=== PATIENT | female | born 1990 | race Caucasian/White ===

== ENCOUNTER 2018-09-06 23:36 | Inpatient (IN) | payer BC ==
[~2018-09-06] VITALS: Ht 160 cm; Wt 73.0 kg
[~2018-09-06 23:36] MED LIST: BUPIVACAINE /PF 0.5% 30 ML VIAL EP ONE; LEVO25TA2 PO
[2018-09-06] MEDS: LR 1,000 ML IV SCH (23:50)
[2018-09-07] MEDS ORDERED: LR 1,000 ML IV ONE
[2018-09-07] MEDS ORDERED: NALBUPHINE HCL 10 MG/ML AMP IM PRN
[2018-09-07] MEDS ORDERED: OXYTOCIN/0.9 % SODIUM CHLORIDE 1,000 ML IV SCH
[2018-09-07] MEDS ORDERED: TERBUTALINE SULFATE 1 MG/ML VIAL SUBCUT ONE
[2018-09-07 00:30] LABS: BASOPHILS % (AUTO) 0.3 % (0.0-2.0); EOSINOPHILS # (AUTO) 0.1 K/uL (0.0-0.4); EOSINOPHILS % (AUTO) 0.7 % (0.0-4.0); HEMATOCRIT 38.6 % (36-48); HEMOGLOBIN 12.8 g/dL (12.0-16.0); LYMPHOCYTES # (AUTO) 1.7 K/uL (1.0-5.5); LYMPHOCYTES % (AUTO) 17.1 % (20.5-51.5); MEAN CORPUSCULAR HEMOGLOBIN 33 pg (27-31); MEAN CORPUSCULAR HGB CONC 33 % (32-36); MEAN CORPUSCULAR VOLUME 98 fL (79.0-98.0); MONOCYTES # (AUTO) 0.8 K/uL (0.0-1.0); MONOCYTES % (AUTO) 8.7 % (1.7-9.3); NEUTROPHILS # (AUTO) 7.1 K/uL (1.8-7.7); NEUTROPHILS % (AUTO) 73.2 % (40.0-70.0); PLATELET COUNT (AUTO) 338 K/uL (130-430); RED BLOOD CELL COUNT(AUTO) 3.92 MIL/uL (4.2-6.2); RED CELL DISTRIBUTION WIDTH 11.9 % (9.0-15.0); WHITE BLOOD COUNT (AUTO) 9.7 K/uL (4.8-10.8)
[2018-09-07] MEDS: LR 1,000 ML IV SCH ×2 (00:30→03:15)
[2018-09-07] MEDS ORDERED: ROPIVACAINE 0.2% 100 ML ONE ×2 (00:32→07:24)
[2018-09-07] MEDS ORDERED: fentaNYL CITRATE/PF 100 MCG/2 ML AMP ONE (00:36)
[2018-09-07] MEDS ORDERED: LR 500 ML IV ONE (01:10)
[2018-09-07] MEDS ORDERED: FENT2mCg/mL-ROPIVA0.2%/NS EPID 150 ML EP SCH (01:15)
[2018-09-07 01:20] VITALS: BP_SYST 155
[2018-09-07] MEDS ORDERED: CEFAZOLIN 2 GM IVPB PREMIX 50 ML IV ONE (09:15)
[2018-09-07] MEDS ORDERED: fentaNYL CITRATE/PF 100 MCG/2 ML AMP IVP PRN ×2 (10:30)
[2018-09-07] MEDS ORDERED: DIPHENHYDRAMINE INJ 50 MG/ML VIAL IVP PRN (10:30)
[2018-09-07] MEDS ORDERED: MORPHINE SULFATE 10MG/10ML PF AMP EP SCH (10:30)
[2018-09-07] MEDS ORDERED: KETOROLAC TROMETHAMINE 60 MG/2 ML VIAL IM PRN (10:30)
[2018-09-07] MEDS ORDERED: NALBUPHINE HCL 10 MG/ML AMP IVP PRN ×2 (10:30)
[2018-09-07] MEDS ORDERED: ONDANSETRON HCL 4 MG/2 ML VIAL IVP PRN (10:30)
[2018-09-07] MEDS ORDERED: NALOXONE HCL 0.4 MG/ML AMP (NARCAN) IVP PRN ×2 (10:30)
[2018-09-07 10:50] VITALS: BP_SYST 123
[2018-09-07] MEDS ORDERED: MEPERIDINE HCL/PF 25 MG/ML DISP.SYRIN IM ONE (12:00)
[2018-09-07] MEDS ORDERED: MEPERIDINE HCL/PF 25 MG/ML DISP.SYRIN ONE (12:07)
[2018-09-07] MEDS ORDERED: LR 1,000 ML IV SCH (14:44)
[2018-09-07] MEDS ORDERED: OXYTOCIN/0.9 % SODIUM CHLORIDE 1,000 ML IV ONE (14:44)
[2018-09-07] MEDS ORDERED: RHO(D) IMMUNE GLOBULIN/MALTOSE 1500 UNITS/1.3 ML (WINHRO) IM PRN (14:45)
[2018-09-07] MEDS ORDERED: OXYCODONE/ACETAMINOPHEN 5-325 TABLET PO PRN (14:45)
[2018-09-07] MEDS ORDERED: DOCUSATE SODIUM 100 MG CAPSULE PO PRN (14:45)
[2018-09-07] MEDS ORDERED: LANOLIN 7 GM OINT. TP PRN (14:45)
[2018-09-07] MEDS: CEFAZOLIN 1 GM IVPB PREMIX 50 ML IV SCH ×2 (18:03→23:36)
[2018-09-07] MEDS: KETOROLAC TROMETHAMINE 30 MG VIAL IVP SCH ×2 (18:03→23:38)
[2018-09-07] MEDS ORDERED: TEMAZEPAM 15 MG CAPSULE PO PRN (21:00)
[2018-09-08] MEDS ORDERED: IBUPROFEN 600 MG TABLET PO SCH (06:00)
[2018-09-08] MEDS: CEFAZOLIN 1 GM IVPB PREMIX 50 ML IV SCH (06:11)
[2018-09-08] MEDS: KETOROLAC TROMETHAMINE 30 MG VIAL IVP SCH (06:11)
[2018-09-08 06:56] LABS: BASOPHILS % (AUTO) 0.3 % (0.0-2.0); EOSINOPHILS # (AUTO) 0.1 K/uL (0.0-0.4); EOSINOPHILS % (AUTO) 1.1 % (0.0-4.0); HEMATOCRIT 31.9 % (36-48); HEMOGLOBIN 10.9 g/dL (12.0-16.0); LYMPHOCYTES # (AUTO) 1.5 K/uL (1.0-5.5); LYMPHOCYTES % (AUTO) 14.2 % (20.5-51.5); MEAN CORPUSCULAR HEMOGLOBIN 33 pg (27-31); MEAN CORPUSCULAR HGB CONC 34 % (32-36); MEAN CORPUSCULAR VOLUME 96 fL (79.0-98.0); MONOCYTES # (AUTO) 0.7 K/uL (0.0-1.0); MONOCYTES % (AUTO) 6.5 % (1.7-9.3); NEUTROPHILS % (AUTO) 77.9 % (40.0-70.0); PLATELET COUNT (AUTO) 235 K/uL (130-430); RED BLOOD CELL COUNT(AUTO) 3.31 MIL/uL (4.2-6.2); RED CELL DISTRIBUTION WIDTH 11.9 % (9.0-15.0); WHITE BLOOD COUNT (AUTO) 10.3 K/uL (4.8-10.8)
[2018-09-08] MEDS ORDERED: WATER FOR IRRIGATION,STERILE 1,000 ML IRRIG.SOLN IR ONE (09:51)
[2018-09-08] MEDS ORDERED: LR 1,000 ML IV.SOLN IV ONE (09:51)
[2018-09-08] MEDS ORDERED: MORPHINE SULFATE 10MG/10ML PF AMP EP ONE (09:51)
[2018-09-08] MEDS: IBUPROFEN 600 MG TABLET PO SCH ×2 (11:56→17:54)
[2018-09-08] MEDS: OXYCODONE/ACETAMINOPHEN 5-325 TABLET PO PRN ×3 (14:03→21:06)
[2018-09-08] MEDS: SIMETHICONE 80 MG TAB.CHEW PO PRN ×3 (14:04→21:06)
[2018-09-09] MEDS: IBUPROFEN 600 MG TABLET PO SCH ×2 (00:13→06:11)
== END 2018-09-09 10:10 | disposition home or self-care (01) | DRG 788 ==
LOC: SPU 23:36
PROVIDERS: ADMIT Obstetrics & Gynecology; ATTEND Obstetrics & Gynecology
PROC: 10D00Z1 Extraction of Products of Conception, Low, Open Approach (ICD-10-PCS; principal; 2018-09-07 10:00)
DX: O76 Abnormality in fetal heart rate and rhythm complicating labor and delivery (principal); Z37.0 Single live birth; O62.9 Abnormality of forces of labor, unspecified; Z3A.37 37 weeks gestation of pregnancy
CPT/HCPCS: 36415; 81002-TC; 85025; 86592; 86870; 86886; 86900; 86901; 94760; J0690; J1200; J1885; J2175; J2274; J2590; J2795; J3010; J3105; J3490; J7120